=== PATIENT | male | born 1980 | race African-American/Black ===

== ENCOUNTER 2017-09-10 07:14 | Emergency (ER) | payer MEDICAID | END 2017-09-10 08:15 | disposition home or self-care (01) | LOC: D.ER 07:14 | DX: S69.92XA Unspecified injury of left wrist, hand and finger(s), initial encounter (principal); W23.0XXA Caught, crushed, jammed, or pinched between moving objects, initial encounter; Y93.89 Activity, other specified; Y92.029 Unspecified place in mobile home as the place of occurrence of the external cause; S62.605A Fracture of unspecified phalanx of left ring finger, initial encounter for closed fracture ==

== ENCOUNTER 2020-08-05 18:44 | Emergency (ER) | payer MEDICAID ==
[~2020-08-05] VITALS: Ht 160 cm; Wt 71.8 kg
[2020-08-05 19:04] VITALS: BP 117/77; Ht 160 cm; Wt 71.8 kg
[2020-08-05] MEDS ORDERED: MOTRIN600 MG PO (20:39)
== END 2020-08-05 21:30 | disposition left against medical advice (07) ==
LOC: D.ER 18:44
DX: S62.502G Fracture of unspecified phalanx of left thumb, subsequent encounter for fracture with delayed healing (principal); M79.645 Pain in left finger(s)

== ENCOUNTER 2020-08-20 00:12 | Emergency (ER) | payer MEDICAID ==
[~2020-08-20] VITALS: Ht 160 cm; Wt 63.6 kg
[~2020-08-20 00:12] MED LIST: MOTRIN600 MG PO
[2020-08-20 00:43] VITALS: Ht 160 cm; Wt 63.6 kg
[2020-08-20 02:03] VITALS: BP 124/80
== END 2020-08-20 01:59 | disposition home or self-care (01) ==
LOC: D.ER 00:12
DX: M72.9 Fibroblastic disorder, unspecified (principal)